=== PATIENT | female | born 1980 | race Caucasian/White ===

== ENCOUNTER 2024-10-27 10:16 | Emergency (ER) | payer BC, SELFPAY ==
--- NOTE | ~2024-10-27 | XR_ITS ---
CLINICAL HISTORY: fall 3 view left foot Comparison: None Findings: No fractures or dislocations. No significant arthritic change or erosions. No ankle effusion. No radiopaque foreign body. IMPRESSION: 1. No acute findings. This document has been electronically signed by: Alex Newberry MD on 10/27/2024 10:55:03
--- NOTE | ~2024-10-27 | XR_ITS ---
CLINICAL HISTORY: fall 3 view left ankle Comparison: None Findings: Bones intact. No dislocations. No significant loss of joint space, osteophytes, or erosions. No ankle effusion. No radiopaque foreign body. There is lateral soft tissue swelling. Correlate for soft tissue injury. IMPRESSION: 1. Lateral soft tissue swelling. Otherwise no acute findings. This document has been electronically signed by: Alex Newberry MD on 10/27/2024 10:55:19
[2024-10-27 10:22] VITALS: BP 122/73; PULSE 84; RESP 19; TEMP 36.6; O2SAT 98; BMI 24.7
--- NOTE | 2024-10-27 11:41 | ED.LOWEXIN ---
HPI - Extremity Injury (Lower) General Chief Complaint: Extremity Injury, Lower Stated Complaint: fall/ ankle inj Time Seen by Provider: 10/27/24 11:07 Source: patient and RN notes reviewed Mode of arrival: ambulatory Limitations: no limitations History of Present Illness ED Provider: Deepthi Hodge PA-C HPI Narrative: This is a [id number]-ocy-female who presents to the ER with complaints of left ankle and foot pain after a slip outdoors. She states that while she was on her deck outside, she stepped down and slipped on the surface and inverted her left ankle and foot. She felt a popping sensation in her foot and ankle. She has been unable to bear weight on her ankle secondary to the pain. She denies hx of injuring her left ankle in the past. She took ibuprofen prior to her arrival. Denies falling to the ground, hitting her head or LOC. She is not on anticoagulation. No other complaints or concerns at this time. MD complaint: ankle injury and foot injury Onset (ago): day(s) Severity: moderate Relieving factors: NSAID Exacerbating factors: weight bearing, movement and palpation Associated symptoms: snap/pop sensation, swelling and unable to bear weight Other symptoms: none Treatments prior to arrival: cold therapy and NSAIDS Related Data Previous Rx's ?Medication ?Instructions ?Recorded acetaminophen 500 mg tablet 500 - 1,000 mg (1 - 2 x 500 mg) PO 10/27/24 (Tylenol Extra Strength) Q6H PRN pain #30 tabs diclofenac potassium 25 mg tablet 25 - 50 mg (1 - 2 x 25 mg) PO Q12H 10/27/24 3 days #12 tabs Allergies Allergy/AdvReac Type Severity Reaction Status Date / Time No Known Allergies Allergy Verified 10/27/24 10:23 Review of Systems Review of Systems: Yes all other systems are reviewed and are negative Constitutional: Constitutional: Reports as per HPI [facility] Social History Social History Advance Directives: No Advance Directives Information Provided: Yes Do you have a plan to hurt others: No Plan Physical Exam Vital Signs: Vital Signs: Last Vital Signs Temp 98 F 10/27/24 12:16 Pulse 84 10/27/24 12:16 Resp 19 10/27/24 12:16 BP 122/73 10/27/24 12:16 Pulse Ox 98 10/27/24 12:16 BMI result Body Mass Index 24.7 Const: General: cooperative, comfortable and no acute distress Orientation/consciousness: patient oriented x3 Limitations: no limitations HEENT: Head: Yes normal to inspection, Yes normocephalic and Yes atraumatic Ears: hearing grossly normal bilaterally General nose exam: Normal external nose present Face and sinus: Yes normal facial exam Mouth: Normal oral and palatal mucosa present, oropharynx normal and moist mucous membranes Throat: Yes posterior oropharynx normal Eyes: General: appearance normal, both eyes and all related structures Eyelids: Yes eyelids normal Conjunctivae: conjunctivae normal Sclerae: sclerae normal Pupils: Equal, round and reactive pupils present EOM: EOMs intact bilaterally Neck: Neck: Yes normal visual inspection, Yes full ROM and Yes no lymphadenopathy Lymphatic: no lymphadenopathy noted Chest: Chest palpation & inspection: normal inspection of the chest Resp: Effort & Inspection: normal respiratory effort and able to speak in complete sentences Cardio: Rate: regular rate Rhythm: regular rhythm Heart sounds: S1 normal heart sound present and S2 normal heart sound present GI: Inspection: Yes normal to inspection Skin: General skin exam: no rashes or lesions noted Trauma: no lacerations or abrasions Wounds: no wounds Neuro: General: patient oriented x3 and moves all extremities Cranial nerves: Yes Equal, round and reactive pupils present Extrem: Other: Left ankle with moderate edema noted more pronounced along the medial and lateral malleloli. No open wounds or abrasions. No ecchymosis seen. She has tenderness to palpation overlying the lateral mallelolus as well as just inferior to lateral malleloli. Mild ttp overlying the medial malleloli. Strong DP pulse. sensation intact. Able to plantar and dorsiflex. Negative buckley's test. Foot is nontender. No ttp overlying fifth metatarsal region. General: Yes normal to inspection Right upper extremity: normal to inspection Left upper extremity: normal to inspection Right lower extremity: normal to inspection Medical Decision Making Medical Decision Making MDM Narrative: This is a [id number]-female who presents to the ER with complaints of left foot and ankle pain s/p slip outdoors today. On arrival, vital signs within normal limits. She is well appearing under no acute distress. Left ankle with moderate edema and tenderness s/p inversion injury concerning for fracture vs ligamentous injury. Her leonel's tendon is intact. She has strong DP pulses. No open wounds. Xray of the ankle shows no acute bony abnormalities, there is lateral soft tissue swelling. Discusssed workup with patient. Stressed the importance of RICE techniques, given musa wrap and crutches. Advised to f/u with orthopedics for further management as needed. She understands and agrees with this plan. Pt requesting diclofenac, this is reasonable short term. Discussed return precautions. Pt stable for d.c. Differential Diagnosis Differential Diagnoses: The differential diagnosis associated with the presentation includes Fracture, sprain, strain, contusion, ligamentous injury Radiology Impression Discussion of test interpretation with radiology: I have reviewed the radiologist's reading. Radiologist Impression: Findings: No fractures or dislocations. No significant arthritic change or erosions. No ankle effusion. No radiopaque foreign body. IMPRESSION: 1. No acute findings. This document has been electronically signed by: Alex Newberry MD on 10/27/2024 10:55:03 Dictated By: Alex Newberry MD [place] [id number] XRay Report Signed Patient: Estelle Longoria MR#: [id number] : 1980 Acct:[id number] Age/Sex: 44 / F ADM Date: 10/27/24 Loc: HO.ED Attending Dr: Ordering Physician: Generic ED Physician Date of Service: 10/27/24 Procedure(s): XR ankle LT min 3V Accession Number(s): [id number] cc: Jessica aJy MD; Generic ED Physician~ CLINICAL HISTORY: fall 3 view left ankle Comparison: None Findings: Bones intact. No dislocations. No significant loss of joint space, osteophytes, or erosions. No ankle effusion. No radiopaque foreign body. There is lateral soft tissue swelling. Correlate for soft tissue injury. IMPRESSION: 1. Lateral soft tissue swelling. Otherwise no acute findings. This document has been electronically signed by: Alex Newberry MD on 10/27/2024 10:55:19 Dictated By: Alex Newberry MD Signed By: <Electronically signed Discharge Plan Discharge Clinical Impression: Ankle sprain and strain Patient Disposition: Home, Self-Care Instructions: Ankle Sprain (ED), How to Use an Elastic Bandage (ED), R.I.C.E. Treatment (ED), Ankle Strain (ED) Additional Instructions: You were seen in the emergency department due to left foot and ankle pain. Your x-rays do not show any acute bony abnormalities. Rest, ice, use Musa wrap, and elevate your foot and ankle. Follow-up with the equipment validation specialist. Stay off your foot until you no longer have pain with weight-bearing. If any new or worsening symptoms occur including but not limited to worsening pain, swelling, decreased sensation in your foot, severe calf pain, please seek emergent care. Prescriptions: New diclofenac potassium 25 mg tablet 25 - 50 mg PO Q12H 3 Days Qty: 12 0RF acetaminophen [Tylenol Extra Strength] 500 mg tablet 500 - 1,000 mg PO Q6H PRN (Reason: pain) Qty: 30 0RF Referrals: [facility] [place]Provider Group] Interventions: ED Discharge Assessment Last Done: 10/27/24 12:16 Discharge Date/Time: 10/27/24 12:20 Print Language: Sudanese
[2024-10-27 12:16] VITALS: BP 122/73; PULSE 84; RESP 19; TEMP 36.6; O2SAT 98
== END 2024-10-27 12:20 | disposition home or self-care (01) ==
PROVIDERS: Emergency Provider Emergency Medicine; PCP Pediatrics
DX: S93.402A Sprain of unspecified ligament of left ankle, initial encounter (principal); S96.912A Strain of unspecified muscle and tendon at ankle and foot level, left foot, initial encounter; W18.40XA Slipping, tripping and stumbling without falling, unspecified, initial encounter; Y93.89 Activity, other specified; Y92.018 Other place in single-family (private) house as the place of occurrence of the external cause; Y99.9 Unspecified external cause status
CPT/HCPCS: 73610; 73630; 99283

== ENCOUNTER → 2024-10-27 10:40 | Outpatient (BNV) | payer SELFPAY | PROVIDERS: PCP Pediatrics; Visit Provider Specialist | DX: M25.579 Pain in unspecified ankle and joints of unspecified foot (principal) | CPT/HCPCS: 73610; 73630 ==